=== PATIENT | female | born 1990 | race African-American/Black ===

== ENCOUNTER 2017-10-04 10:11 | Emergency (ER) | payer OTHER ==
[~2017-10-04] VITALS: Ht 160 cm; Wt 54.4 kg
[2017-10-04 10:32] LABS: URINE BILIRUBIN NEGATIVE (Negative); URINE BLOOD TRACE (Negative); URINE CLARITY CLOUDY; URINE COLOR YELLOW; URINE GLUCOSE-RANDOM* NEGATIVE (Negative); URINE KETONES NEGATIVE (Negative); URINE LEUKOCYTES 2+ (Negative); URINE NITRITE POSITIVE (Negative); URINE PROTEIN (DIPSTICK) TRACE (Negative); URINE SPECIFIC GRAVITY 1.025 (1.005-1.035); URINE UROBILINOGEN 0.2 E.U./dl (0.2-1.0)
[2017-10-04 10:38] LABS: SQUAMOUS >10 Many /LPF (0-3)
[2017-10-04 10:39] LABS: BACTERIA >30 Many /HPF (None Seen); CASTS None Seen /LPF (None Seen); CRYSTALS None Seen /LPF (None Seen); URINE RBC None Seen /HPF (0-2); URINE WBC >25 Many /HPF (0-5)
[2017-10-04 12:23] LABS: BASOPHILS 0.6 % (0.0-2.0); EOSINOPHILS 0.1 % (0.0-3.0); HEMATOCRIT 35.2 % (37.0-47.0); HEMOGLOBIN 11.6 gm/dL (12.0-15.0); LYMPHOCYTES 19.3 % (24.0-44.0); MCH 25.4 pg (26.0-34.0); MONOCYTES 6.6 % (1.0-8.0); PLATELET COUNT 265 thou/uL (150-400); POLYS 73.4 % (36.0-66.0); RBC 4.57 mil/uL (4.20-5.00); RDW 15.8 % (10.5-14.5); WBC 6.8 thou/uL (4.0-11.0)
[2017-10-04 12:30] LABS: CALCIUM 9.1 mg/dL (8.5-10.1); CREATININE 0.9 mg/dL (0.6-1.0); POTASSIUM 3.8 mmol/L (3.5-5.1)
[2017-10-04 12:43] LABS: MAGNESIUM 1.9 mg/dL (1.8-2.4)
[2017-10-04 12:44] LABS: ALBUMIN 4.4 g/dL (3.4-5.0); TOTAL BILIRUBIN 0.3 mg/dL (<0.1-1.0); TOTAL PROTEIN 8.2 g/dL (6.4-8.2)
[2017-10-04] MEDS ORDERED: FLAGYL500 MG PO (13:01)
[2017-10-04] MEDS ORDERED: BACTRIM DS TAB1 EACH PO (13:01)
[2017-10-04 13:34] VITALS: BP 110/72
[2017-10-05 14:13] LABS: NEISSERIA GONORRHEA-PCR Negative (Negative)
== END 2017-10-04 13:30 | disposition home or self-care (01) ==
LOC: ER 10:11
PROVIDERS: Physician Assistant
DX: N75.1 Abscess of Bartholin's gland (principal); A59.01 Trichomonal vulvovaginitis; N39.0 Urinary tract infection, site not specified; Z20.2 Contact with and (suspected) exposure to infections with a predominantly sexual mode of transmission